=== PATIENT | male | born 1960 ===

== ENCOUNTER 2022-08-08 04:45 | Day surgery (SDC) | payer OTHER ==
[~2022-08-08] VITALS: Ht 175.3 cm; Wt 111.1 kg
[~2022-08-08 04:45] MED LIST: ATACAND HCT 11 UDTA1 PO; ATACAND16 MG PO; BENADRYL25 MG PO; FLEXERIL PO; GLIPIZIDE XL10 MG PO; LEVOTHYROXINE25 MCG PO; METFORMIN HCL1000 M2 PO; NABUMETONE750 MG PO; ZESTRIL10 M1 PO
== END 2022-08-08 15:25 | disposition home or self-care (01) ==
LOC: CIR.AMB 04:45
PROVIDERS: ATTEND Specialist
DX: K80.10 Calculus of gallbladder with chronic cholecystitis without obstruction (principal); Z20.822 Contact with and (suspected) exposure to COVID-19; Z91.013 Allergy to seafood; Z88.8 Allergy status to other drugs, medicaments and biological substances; I10 Essential (primary) hypertension; E78.5 Hyperlipidemia, unspecified; Z86.16 Personal history of COVID-19; E11.9 Type 2 diabetes mellitus without complications; Z79.84 Long term (current) use of oral hypoglycemic drugs